=== PATIENT | male | born 1950 | race Caucasian/White ===

== ENCOUNTER → 2019-10-29 | Outpatient (CLI) | payer OTHER ==
--- NOTE | 2019-10-29 20:03 | 2DMMODE ---
[place] [id number] 2 D/M-MODE ECHOCARDIOGRAM Name: LITZY MILLER Room: [facility]#: [id number] Admission: 10/29/19 Attend Phys: Brandon King MD Discharge: Date of : 46 Date of Service: 10/29/192002 Report #: [id number] THIS REPORT FOR: cc: Benito Martin Bradley L. DO Liston, Michael J. MD [facility] ~ APPROVED REPORT Study performed: 10/29/2019 14:07:33 EXAM: Comprehensive 2D, Doppler, and color-flow Echocardiogram Patient Location: Out-Patient BSA: 2.10 HR: 72 bpm BP: 110/62 mmHg Other Information Study Quality: Good Indications Ischemic heart disease 2D Dimensions IVSd: 11.09 (7-11mm) LVOT Diam: 20.32 (18-24mm) LVDd: 41.15 mm PWd: 9.66 (7-11mm) Ascending Ao: 29.24 (22-36mm) LVDs: 22.37 (25-40mm) Aortic Root: 32.53 mm Volumes Left Atrial Volume (Systole) LA ESV Index: 13.50 mL/m2 Aortic Valve AoV Peak Jeff.: 1.12 m/s AO Peak Gr.: 5.06 mmHg LVOT Max P.80 mmHg AO Mean Gr.: 3.04 mmHg LVOT Mean P.29 mmHg LVOT Max V: 1.10 m/s AO V2 VTI: 20.68 cm LVOT Mean V: 0.69 m/s CLAUDIA (VTI): 3.27 cm2 LVOT V1 VTI: 20.87 cm Mitral Valve E/A Ratio: 1.00 [place] [id number] 2 D/M-MODE ECHOCARDIOGRAM Name: LITZY MILLER Room: [facility]#: [id number] Admission: 10/29/19 Attend Phys: Brandon King MD Discharge: Date of : 46 Date of Service: 10/29/192002 Report #: [id number] MV Decel. Time: 188.55 ms MV E Max Jeff.: 0.57 m/s MV PHT: 54.68 ms MVA (PHT): 4.02 cm2 TDI E/Lateral E': 6.33 E/Medial E': 8.14 Medial E' Jeff.: 0.07 m/s Lateral E' Jeff.: 0.09 m/s Pulmonary Valve PV Peak Jeff.: 0.90 m/s PV Peak Gr.: 3.27 mmHg Tricuspid Valve RAP Estimate: 5.00 mmHg TR Peak Gr.: 24.62 mmHg RVSP: 29.62 mmHg PA Pressure: 29.62 mmHg Left Ventricle The left ventricle is normal size. There is normal LV segmental wall motion. There is normal left ventricular wall thickness. Left ventricular systolic function is normal. LVEF is 55-60%. Grade I - abnormal relaxation pattern. Right Ventricle The right ventricle is normal size. The right ventricular systolic function is normal. Atria The left atrium size is normal. The right atrium size is normal. Aortic Valve The aortic valve is normal in structure. No aortic regurgitation is present. There is no aortic valvular stenosis. Mitral Valve The mitral valve is normal in structure. There is no mitral valve regurgitation noted. No evidence of mitral valve stenosis. Tricuspid Valve The tricuspid valve is normal in structure. Mild tricuspid regurgitation. No pulmonary hypertension. Pulmonic Valve The pulmonary valve is normal in structure. [place] [id number] 2 D/M-MODE ECHOCARDIOGRAM Name: MILLERLITZY A Room: [facility]#: [id number] Admission: 10/29/19 Attend Phys: Brandon King MD Discharge: Date of : 46 Date of Service: 10/29/192002 Report #: [id number] valvular regurgitation. Great Vessels The aortic root is normal in size. IVC is not well visualized. Pericardium There is no pericardial effusion. <Conclusion> The left ventricle is normal size. There is normal left ventricular wall thickness. Left ventricular systolic function is normal. LVEF is 55-60%. Grade I - abnormal relaxation pattern. Mild tricuspid regurgitation. No pulmonary hypertension. <ELECTRONICALLY SIGNED> By: Sotero Choi MD, FACC 10/29/192002 02 02 Sotero Choi MD, FACC /INF
== END ==
LOC: M.CRD 13:56
DX: I36.1 Nonrheumatic tricuspid (valve) insufficiency (principal); I25.9 Chronic ischemic heart disease, unspecified